=== PATIENT | female | born 1965 | race Caucasian/White ===

== ENCOUNTER 2021-04-01 06:33 | Inpatient (IN) | payer OTHER ==
[~2021-04-01] VITALS: Ht 154.9 cm; Wt 66.2 kg
[2021-04-01] MEDS ORDERED: RESTORIL7.5 MG (06:41)
[2021-04-01] MEDS ORDERED: LIPITOR40 M1 (06:41)
[2021-04-11] MEDS ORDERED: CIPRO500 MG PO (09:00)
[2021-04-11] MEDS ORDERED: SILVADENE20 GM TOP (09:00)
[2021-04-11] MEDS ORDERED: BACTRIM DS TAB1 EACH PO (09:00)
== END 2021-04-11 09:55 | disposition home or self-care (01) | DRG 920 ==
LOC: ER 06:33 → MEDI 15:12
PROVIDERS: ADMIT Internal Medicine; ATTEND Internal Medicine
PROC: 0W9830Z Drainage of Chest Wall with Drainage Device, Percutaneous Approach (ICD-10-PCS; principal; 2021-04-02)
PROC: 02HV33Z Insertion of Infusion Device into Superior Vena Cava, Percutaneous Approach (ICD-10-PCS; 2021-04-09)
DX: M96.843 Postprocedural seroma of a musculoskeletal structure following other procedure (principal); L03.313 Cellulitis of chest wall; C50.919 Malignant neoplasm of unspecified site of unspecified female breast; N63.20 Unspecified lump in the left breast, unspecified quadrant; E78.5 Hyperlipidemia, unspecified; Z90.13 Acquired absence of bilateral breasts and nipples; Z20.822 Contact with and (suspected) exposure to COVID-19